=== PATIENT | female | born 1975 | race Caucasian/White ===

== ENCOUNTER 2017-02-25 07:25 | Emergency (ER) | payer OTHER ==
[~2017-02-25] VITALS: Ht 162.6 cm; Wt 93.0 kg
[~2017-02-25 07:25] MED LIST: ALBUTEROL2.5 MG/32 IH; CALCIUM +D & M1 EACH PO; DESYREL50 MG; DULERA 200 MCG/13 GM; FLEXERIL PO; HYDROCODON-ACE1 EA10; MEDROLDOSEPACK PO; MULTIVITAMINS1 EAC7 PO; NORCO 5-325 TA1 EACH PO; PROAIR HFA8.5 GM
[2017-02-25] MEDS ORDERED: PROPRANOLOL 1010 MG PO (07:29)
[2017-02-25] MEDS ORDERED: TRAZODONE HCL50 MG PO (07:29)
[2017-02-25] MEDS ORDERED: EXCEDRIN CAPLE1 EACH PO (07:29)
[2017-02-25 08:01] LABS: URINE BILIRUBIN NEGATIVE (Negative); URINE BLOOD NEGATIVE (Negative); URINE COLOR YELLOW; URINE GLUCOSE-RANDOM* NEGATIVE (Negative); URINE KETONES NEGATIVE (Negative); URINE NITRITE NEGATIVE (Negative); URINE PROTEIN (DIPSTICK) TRACE (Negative); URINE UROBILINOGEN 0.2 E.U./dl (0.2-1.0)
[2017-02-25 08:04] LABS: ABSOLUTE NEUTROPHILS 6.9 thou/uL (1.4-8.2); EOSINOPHILS 1.8 % (0.0-3.0); HEMATOCRIT 32.9 % (37.0-47.0); HEMOGLOBIN 10.8 gm/dL (12.0-15.0); LYMPHOCYTES 27.7 % (24.0-44.0); MCH 26.9 pg (26.0-34.0); MCHC 32.8 g/dL (28.0-37.0); MONOCYTES 9.3 % (1.0-8.0); PLATELET COUNT 441 thou/uL (150-400); POLYS 60.2 % (36.0-66.0); RBC 4.01 mil/uL (4.20-5.00); RDW 13.4 % (10.5-14.5); WBC 11.5 thou/uL (4.0-11.0)
[2017-02-25 08:06] LABS: MANUAL DIFF NO
[2017-02-25 08:09] LABS: BACTERIA >30 Many /HPF (None Seen); CASTS None Seen /LPF (None Seen); CRYSTALS None Seen /LPF (None Seen); SQUAMOUS >10 Many /LPF (0-3); URINE RBC None Seen /HPF (0-2)
[2017-02-25 08:12] LABS: ANION GAP 11 mmol/L (7-16); BUN 10 mg/dL (7-18); CALCIUM 8.7 mg/dL (8.5-10.1); CHLORIDE 104 mmol/L (98-107); CO2 23 mmol/L (21-32); CREATININE 0.9 mg/dL (0.6-1.0); GLUCOSE 93 mg/dL (74-106); POTASSIUM 3.8 mmol/L (3.5-5.1); SODIUM 138 mmol/L (136-145)
[2017-02-25 08:18] LABS: ALBUMIN 3.2 g/dL (3.4-5.0); ALKALINE PHOSPHATASE 70 U/L (46-116); DIRECT BILIRUBIN < 0.1 mg/dL (<0.1-0.3); SGOT 18 U/L (15-37); SGPT 19 U/L (30-65); TOTAL BILIRUBIN 0.3 mg/dL (<0.1-1.0); TOTAL PROTEIN 6.8 g/dL (6.4-8.2)
[2017-02-25] MEDS ORDERED: MACROBID 100 M100 M1 PO (09:03)
[2017-02-25] MEDS ORDERED: PHENERGAN 25 MG25 M1 PO (09:03)
[2017-02-25] MEDS ORDERED: ZOFRAN ODT4 MG PO (09:03)
[2017-02-25 10:01] VITALS: BP 141/69
== END 2017-02-25 10:06 | disposition home or self-care (01) ==
LOC: ER 07:25
PROVIDERS: Emergency Medicine
DX: N39.0 Urinary tract infection, site not specified (principal); R11.0 Nausea; F10.99 Alcohol use, unspecified with unspecified alcohol-induced disorder; Z88.6 Allergy status to analgesic agent